=== PATIENT | female | born 1985 | race Caucasian/White ===

== ENCOUNTER 2020-09-23 15:02 | Emergency (ER) | payer OTHER ==
[~2020-09-23] VITALS: Ht 175.3 cm; Wt 88.0 kg
[2020-09-23 15:58] VITALS: BP 135/78
--- NOTE | 2020-09-23 16:20 | NUR ---
Patient presents to the ER with c/o flank pain to bi-lat lower back which started this morning. She suspects it to be a kidney stone. She went to an urgent care 1 week ago, did lab work-up and was told that she had a UTI and was given ABT. She reported that she was ok until this intermittent pain started on Thursday last week. Her pain is constant at 6-7 and an 8 when severe. AAOX4 Allergies: NKA Independently ambulatory
--- NOTE | 2020-09-23 16:24 | Emergency Room Report ---
History of Present Illness General Chief Complaint: Lower Back Pain or Injury Source: Patient Present Illness HPI Disclaimer: Please note that this report is being documented using DRAGON technology. This can lead to erroneous entry secondary to incorrect interpretation by the dictating instrument. HPI: 35-year-old female presents for abdominal and flank pain. Patient states he was treated for urinary tract infection with antibiotics last week. Finish the entire course and was initially feeling better. This morning she awoke with bilateral pain in the flanks that does not radiate. Denies nausea or vomiting. Denies diarrhea. Denies fever or chills. Denies dysuria, hematuria. Patient has IUD in place and denies possibility of . Denies vaginal bleeding or vaginal discharge. Denies pain with eating. Reports urinary frequency but she is drinking a lot of water since being diagnosed with a UTI. PMH: Denied PSH: Denied Allergies: Denied Social Hx: Denied Allergies: Coded Allergies: No Known Allergies (Unverified , 09/23/20) COVID-19 Screening Contact w/high risk pt: No Experienced COVID-19 symptoms?: No COVID-19 Testing performed [employer]: No Patient History Last Menstrual Period: 3 weeks ago Now: No : 0 Nursing Documentation-PMH Past Medical History: No Stated History Review of Systems All Other Systems: negative except mentioned in HPI Physical Exam Vital Signs Date Time Temp Pulse Resp B/P (MAP) Pulse Ox O2 Delivery O2 Flow Rate FiO2 09/23/20 15:58 98.6 78 16 135/78 (97) 96 Room Air General: Awake and alert, no acute distress HEENT: NC/AT. EOMI. Cardiovascular: RRR. S1 and S2 normal. No murmur appreciated Resp: Normal work of breathing. No cough, wheezing or crackles appreciated Abdomen: Abdomen is soft, nondistended. Tender to palpation suprapubic region. No tenderness in the lower or upper quadrants otherwise. No guarding. No rebound. Negative Singh's. Skin: Intact. No abrasions, laceration or rash over the exposed skin MSK: Normal tone and bulk. Moving all extremities. No obvious deformity. Neuro: Awake and alert. Mentating appropriately. Back: Bilateral CVA tenderness on percussion Medical Decision Making Diagnostic Impression: Primary Impression: Pyelonephritis Additional Impression: Ovarian cyst ER Course Is a 35-year-old female presenting for evaluation of abdominal and flank pain. Differential includes not limited to UTI, pyelonephritis, nephrolithiasis, pancreatitis, gastritis, gastroenteritis, constipation among others. Blood work returned within normal limits. Urinalysis still concerning for an acute urinary tract infection despite patient recently finished a course of antibiotics. May have been referred resistant to Keflex. Her symptoms today are more consistent with a pyelonephritis and we will switch her to ciprofloxacin. CT did not show any nephroliths or obstruction. Did demonstrate ovarian cyst for which the patient will follow up with her [facility] on an outpatient basis. She requested a dose of Diflucan as she states she had a yeast infection taking ciprofloxacin in the past. Stable for outpatient follow-up. Instructed to return new or worsening symptoms. Laboratory Tests Test 09/23/20 16:33 09/23/20 16:53 Urine Color Yellow Urine Appearance Clear Urine pH 6 (4.5-8.0) Urine Specific Means 1.005 (1.005-1.035) Urine Protein Negative (NEGATIVE) Urine Glucose (UA) Negative (NEGATIVE) Urine Ketones Negative (NEGATIVE) Urine Blood Negative (NEGATIVE) Urine Nitrite Positive (NEGATIVE) H Urine Bilirubin Negative (NEGATIVE) Urine Urobilinogen Normal MG/DL (0.0-1.0) Urine Leukocyte Esterase Negative (NEGATIVE) Urine RBC 0 /HPF (0 - 2) Urine WBC 0-2 /HPF (0 - 2) Urine Squamous Epithelial Cells Many /LPF (NONE/OCC) H Urine Bacteria Moderate /HPF (NONE) H Urine HCG, Qualitative Negative (NEGATIVE) Sodium Level 136 MMOL/L (136-145) Potassium Level 4.1 MMOL/L (3.5-5.1) Chloride Level 98 MMOL/L (98-107) Carbon Dioxide Level 26 MMOL/L (21-32) Anion Gap 12 mmol/L (5-15) Blood Urea Nitrogen 13 mg/dL (7-18) Creatinine 0.9 MG/DL (0.55-1.30) Estimated Glomerular Filtration Rate > 60 mL/min (>60) Glucose Level 85 MG/DL (74-106) Calcium Level 9.0 MG/DL (8.5-10.1) Total Bilirubin 0.6 MG/DL (0.2-1.0) Aspartate Amino Transferase (AST) 21 U/L (15-37) Alanine Aminotransferase (ALT) 20 U/L (12-78) Alkaline Phosphatase 53 U/L (46-116) Total Protein 8.0 G/DL (6.4-8.2) Albumin 4.4 G/DL (3.4-5.0) Globulin 3.6 g/dL Albumin/Globulin Ratio 1.2 (1.0-2.7) Lipase 103 U/L (73-393) White Blood Count 7.7 K/UL (4.8-10.8) Red Blood Count 4.08 M/UL (4.20-5.40) L Hemoglobin 13.0 G/DL (12.0-16.0) Hematocrit 38.8 % (37.0-47.0) Mean Corpuscular Volume 95 FL (80-99) Mean Corpuscular Hemoglobin 32.0 PG (27.0-31.0) H Mean Corpuscular Hemoglobin Concent 33.6 G/DL (32.0-36.0) Red Cell Distribution Width 12.5 % (11.6-14.8) Platelet Count 266 K/UL (150-450) Mean Platelet Volume 7.4 FL (6.5-10.1) Neutrophils (%) (Auto) 70.0 % (45.0-75.0) Lymphocytes (%) (Auto) 21.7 % (20.0-45.0) Monocytes (%) (Auto) 6.6 % (1.0-10.0) Eosinophils (%) (Auto) 0.5 % (0.0-3.0) Basophils (%) (Auto) 1.2 % (0.0-2.0) CT/MRI/US Diagnostic Results CT/MRI/US Diagnostic Results : Impression IMPRESSION:Right greater than left ovarian cyst with no free air or bowel obstruction. No evidence of appendicitis or diverticulitis. Consider follow-up with pelvic ultrasound to evaluate multiple cysts. No hydronephrosis or nephrolithiasis. Radiologist: Harsh Osullivan M.D. Electronically Signed: 09/23/20 17:38 Last Vital Signs Date Time Temp Pulse Resp B/P (MAP) Pulse Ox O2 Delivery O2 Flow Rate FiO2 09/23/20 16:17 Room Air 09/23/20 15:58 98.6 78 16 135/78 (97 96 Disposition: HOME, SELF-CARE Condition: Stable Scripts Fluconazole (DIFLUCAN) 150 Mg Tablet 150 MG PO ONCE for 1 Day, #1 TAB Prov: Tenzin Pimentel MD 09/23/20 Ciprofloxacin Hcl* (CIPROFLOXACIN HCL*) 500 Mg Tablet 500 MG ORAL Q12H for 7 Days, #14 TAB 0 Refills Prov: Tenzin Pimentel MD 09/23/20 Referrals: NOT CHOSEN [facility]/MD,REFERRING (PCP) Tenzin Pimentel MD Sep 23, 2020 16:24
[2020-09-23 16:44] LABS: APPEARANCE,URINE CLEAR; BILIRUBIN, URINE NEGATIVE (NEGATIVE); GLUCOSE, URINE (UA) NEGATIVE (NEGATIVE); KETONES,URINE NEGATIVE (NEGATIVE); LEUKOCYTE ESTERASE ,URINE NEGATIVE (NEGATIVE); NITRITE,URINE POSITIVE (NEGATIVE); PH,URINE 6 (4.5-8.0); PROTEIN,URINE NEGATIVE (NEGATIVE); UROBILINOGEN,URINE NORMAL MG/DL (0.0-1.0)
[2020-09-23 16:49] LABS: COLOR,URINE YELLOW
[2020-09-23 16:52] LABS: ANION GAP 12 mmol/L (5-15); BLOOD UREA NITROGEN 13 mg/dL (7-18); CARBON DIOXIDE 26 MMOL/L (21-32); CHLORIDE 98 MMOL/L (98-107); CREATININE 0.9 MG/DL (0.55-1.30); POTASSIUM 4.1 MMOL/L (3.5-5.1); SODIUM 136 MMOL/L (136-145)
[2020-09-23 16:57] LABS: ALANINE AMINOTRANSFERASE 20 U/L (12-78); ALBUMIN 4.4 G/DL (3.4-5.0); ALBUMIN/GLOBULIN RATIO 1.2 (1.0-2.7); ALKALINE PHOSPHATASE 53 U/L (46-116); ASPARTATE AMINO TRANSFERASE 21 U/L (15-37); BILIRUBIN,TOTAL 0.6 MG/DL (0.2-1.0)
[2020-09-23 17:06] LABS: BASOPHILS % (AUTO) 1.2 % (0.0-2.0); EOSINOPHILS % (AUTO) 0.5 % (0.0-3.0); HEMATOCRIT 38.8 % (37.0-47.0); LYMPHOCYTES % (AUTO) 21.7 % (20.0-45.0); MEAN CORPUSCULAR VOLUME 95 FL (80-99); MONOCYTES % (AUTO) 6.6 % (1.0-10.0); PLATELET COUNT 266 K/UL (150-450); RED BLOOD COUNT 4.08 M/UL (4.20-5.40); RED CELL DISTRIBUTION WIDTH 12.5 % (11.6-14.8); WHITE BLOOD COUNT 7.7 K/UL (4.8-10.8)
[2020-09-23] MEDS ORDERED: Morphine Sulfate 2mg/ml Inj(IV/IM USE ONLY) IVP ONE (17:15)
[2020-09-23] MEDS ORDERED: CIPROFLOXACIN500 M2 ORAL (17:29)
[2020-09-23] MEDS ORDERED: Ciprofloxacin 500mg tab ORAL ONE (17:30)
--- NOTE | 2020-09-23 17:38 | Diagnostic Imaging Report ---
CT ABDOMEN + PELVIS Without Contrast HISTORY: Abdominal pain TECHNIQUE: One or more of the following dose reduction techniques were used: automated exposure control, adjustment of the mA and/or kV according to patient size, use of iterative reconstruction technique. One or more of the following dose reduction techniques were used: automated exposure control, adjustment of the mA and/or kV according to patient size, use of iterative reconstruction technique. Total Exam volume computed tomography dose index (CTDIvol) = mGy and Dose Length Product (DLP) = mGY-c TECHNIQUE: Multiple, contiguous axial cuts of the abdomen and pelvis are obtained from the lung bases to the ischial tuberosities. No IV or oral contrast is given. Sagittal and coronal reformatted images are available. COMPARISON: None FINDINGS: The lung bases are clear. The liver and spleen are normal in size and free of mass lesions. The gallbladder, bile ducts and pancreas are normal. The adrenal gland are unremarkable. The kidneys are normal in size and contour. No stones, lesions or hydronephrosis. No evidence of appendicitis or diverticulitis. Underdistended appearance of the large bowel. Aorta is normal caliber. No adenopathy or extraluminal air. The osseous structures are normal. IUD in place. Fluid-filled urinary bladder demonstrated. Bilateral right greater than left ovarian cysts with largest cyst in the right ovary measuring 3.7 x 3.3 cm. IMPRESSION: Right greater than left ovarian cyst with no free air or bowel obstruction. No evidence of appendicitis or diverticulitis. Consider follow-up with pelvic ultrasound to evaluate multiple cysts. No hydronephrosis or nephrolithiasis.
[2020-09-23] MEDS ORDERED: DIFLUCAN150 MG PO (17:42)
== END 2020-09-23 18:03 | disposition home or self-care (01) ==
LOC: EMR 15:50
DX: N12 Tubulo-interstitial nephritis, not specified as acute or chronic (principal); N83.202 Unspecified ovarian cyst, left side; N83.201 Unspecified ovarian cyst, right side; Z97.5 Presence of (intrauterine) contraceptive device
CPT/HCPCS: 36415; 74176; 80053; 81003; 81025; 83690; 85025; 87086; 96374; 99284; J2270